=== PATIENT | female | born 1975 | race Caucasian/White ===

== ENCOUNTER 2018-09-22 05:52 | Inpatient (IN) | payer OTHER ==
--- NOTE | 2018-09-19 00:29 | PREOPHP ---
DATE OF ADMISSION: 09/22/2018 HISTORY OF PRESENT ILLNESS: This is a 43-year-old female, 3, para 3. This patient had been referred to me by her clinic due to severe periods with heaviness, very painful clots and bleeding th at lasts more than 7 days. The patient was diagnosed with large multiple fibroids. She also loses u rine with Valsalva maneuvers and due to the size of the uterus and the pressure of the uterus on her bladder, she has to wear a pad to prevent accidents. The patient had a history of an appendectomy an d a laparoscopic tubal ligation. REVIEW OF SYSTEMS: Negative for cardiovascular disease. Negative for lung disease, GI disease, endo crine disease, neurological or orthopedic disease. ALLERGIES: SHE IS NOT ALLERGIC TO ANY MEDICATIONS. SOCIAL HISTORY: She does not drink or smoke. She has no history of drugs. FAMILY HISTORY: Diabetes on her father's side. MEDICATIONS: She is not taking any medication. She had a history of a tubal ligation. The patient had a CT scan to evaluate her uterus because of t he size of her uterus and there was mild dilatation of both ureters due to the pelvic pressure of the uterus that were multiple fibroids. PHYSICAL EXAMINATION: VITAL SIGNS: The patient's blood pressure was 90/60, pulse is 80, respirations 16. She weighs 162 p ounds. The patient is 5 feet 3 inches. HEAD AND NECK: Normal. BREASTS: Soft, nontender, no masses. Breasts with fibrocystic breast. HEART: Normal sinus rhythm. BACK: Normal. ABDOMEN: The uterus is very large, palpated over the symphysis pubis, about 14-week size of a pregna ncy. PELVIC: With normal external genitalia and uterus very painful on mobilization. Adnexa were negativ e. RECTAL: With the large multiple fibroid uterus that was pressuring in the back. EXTREMITIES: Normal with normal pulses, no edema. Normal reflexes. IMAGING: The patient's CT scan showed no lymphadenopathy or ascites and only the dilatation, mild di latation of both ureters, and she also was found to have a periumbilical hernia. DIAGNOSES: 1. Large multiple fibroid uterus with bilateral ureteral external compression. 2. Intractable pelvic pain and bleeding. PLAN: She is undergoing a total abdominal hysterectomy and bilateral salpingectomy. She has been ad vised of the possible risks and possible complications of the procedure with her alternatives and opt ions. Written information was provided. She had no more questions and agreed to go ahead with the p rocedure with full understanding and no more questions. Dictated By: MATTHIEU HICKS/NTS Conf#: [id number] DID#: [id number]
[2018-09-21 18:32] VITALS: BMI 29.3
[2018-09-22] VITALS (42 sets, daily range): BP systolic 80–134; BP diastolic 53–79; PULSE 60–78; RESP 9–32; Ht 160 cm; Wt 70.4 kg
[~2018-09-22] VITALS: Ht 160 cm; Wt 70.4 kg
[~2018-09-22 05:52] MED LIST: HYDR-3498 PO; IBUP-1542 PO; NITR-58 PO; ORPH100T PO
[2018-09-22] MEDS ORDERED: CEFAZOLIN 2 GM/50 ML (PMX) 50 ML IVPB ONE (06:00)
[2018-09-22] MEDS ORDERED: PROPOFOL 200 MG INJ ONE (07:00)
[2018-09-22] MEDS ORDERED: SEVOFLURANE 15 MIN ONE (07:00)
--- NOTE | 2018-09-22 07:42 | HPN ---
Date/Time of Note Date/Time of Note DATE: 09/22/18 TIME: 07:42 Interval H&P Admission Note Pt. seen H&P reviewed: No system changes MATTHIEU RIVERA MD Sep 22, 2018 07:42
--- NOTE | 2018-09-22 07:45 | PREAC ---
Date/Time of Note Date/Time of Note DATE: 09/22/18 TIME: 07:43 Anesthesia Eval and Record Evaluation Time Pre-Procedure Interview DATE: 09/22/18 TIME: 07:43 Age 43 Sex female NPO: 8 hrs Preoperative diagnosis Uterine Fibroid Planned procedure Total abdominal Hysterectomy Past Medical History Past Medical History: None Surgery & Anesthesia Issues No known issue Meds Anticoagulation: No Beta Caterina within 24 hr: No Reason Beta Caterina not given: Pt. not on B-Caterina Discontinued Scripts Nitrofurantoin Monohyd Macrocr* (Macrobid*) 100 Mg Capsr, 100 MG PO BID for 7 Days, CAP Prov:STACI,SHANE C 02/01/16 Ibuprofen* (Ibuprofen*) 600 Mg Tablet, 600 MG PO Q6 for 7 Days, TAB Prov:STACI,SHANE C 02/01/16 Orphenadrine Citrate (Norflex) 100 Mg Tablet.sa, 100 MG PO BID for 7 Days, TAB.SA Prov:STACI,SHANE C 02/01/16 Hydrocodone Bit-Acetaminophen* ([place]*) 5-325 Mg Tab, 1 TAB PO Q6 PRN for PAIN, #20 TAB Prov:STACI,SHANE C 02/01/16 Current Medications Dextrose/Lactated Ringer's 1,000 ml @ 125 mls/hr Q8H IV ; Start 09/22/18 at 07:30 Meds reviewed: Yes Allergies Coded Allergies: No Known Allergy (Verified , 09/22/18) Allergies Reviewed: Yes Labs/Studies Labs Reviewed: Reviewed by anesthesiologist test: Negative Pre-procedure Exam Last vitals Vital Signs Date Temp Pulse Resp B/P (MAP) Pulse Ox O2 O2 Flow FiO2 Time Delivery Rate 09/22/18 98.2 63 18 80/55 (63) 99 Room Air 07:27 Airway: Adequate mouth opening, Adequate thyromental dist Mallampati: Mallampati II Teeth: Normal Lung: Normal Heart: Normal ASA Physical Status ASA physical status: 2 Emergency: None Planned Anesthetic General/MAC: ETT, LMA Neuraxial: Spinal Planned Pain Management Sub-arachniod narcotics, Parenteral pain med Pre-operative Attestations Prior to commencing anesthesia and surgery, the patient was re-evaluated, there was verification of: *The patient's identity *The results of appropriate recent lab work and preoperative vital signs *The above evaluation not changing prior to induction *Anesthetic plan, risk benefits, alternative and complications discussed with patient/family; questions answered; patient/family understands, accepts and wishes to proceed. MARCO ANTONIO DUVALL MD Sep 22, 2018 07:45
[2018-09-22] MEDS ORDERED: MIDAZOLAM 1 MG/ML 2 ML INJ ONE (07:54)
[2018-09-22] MEDS ORDERED: FENTAnyl 50 MCG/ML VIAL ONE (07:54)
[2018-09-22] MEDS ORDERED: morphine SULFATE/PF (10 MG/10 ML) INJ ONE (07:54)
--- NOTE | 2018-09-22 08:30 | SIPON ---
Date/Time of Note Date/Time of Note DATE: 09/22/18 TIME: 08:28 Operative Report Preoperative Diagnosis Intractable pelvic pain and bleeding Large giant multiple fibroid uterus Chronic anemia Bilateral ureteral pressure Postoperative Diagnosis Same Operation/Procedure Performed Total abdominal hysterectomy bilateral salpingectomy Surgeon see signature line sales assistant entertainment and mediajenifer Rivera Anesthesia: general Estimated blood loss: 50 - 100 ml's Transfusion Required none Specimen Uterus and tubes Grafts/Implants none Complications none MATTHIEU RIVERA MD Sep 22, 2018 08:30
[2018-09-22] MEDS ORDERED: THROMBIN 5000 UNIT VIAL ONE (09:48)
[2018-09-22] MEDS ORDERED: ROCURONIUM 50 MG INJ ONE (10:24)
[2018-09-22] MEDS ORDERED: LIDOCAINE 2% (SDV) 5 ML INJ ONE (10:24)
[2018-09-22] MEDS ORDERED: GLYCOPYRROLATE 0.4 MG INJ ONE (10:24)
[2018-09-22] MEDS ORDERED: NEOSTIGMINE 3 MG/3 ML SYRINGE ONE (10:24)
[2018-09-22] MEDS ORDERED: ETOMIDATE 20 MG INJ ONE (10:24)
[2018-09-22] MEDS ORDERED: ONDANSETRON 4 MG INJ ONE (10:25)
[2018-09-22] MEDS ORDERED: CEFAZOLIN 1 GM INJ ONE (10:38)
--- NOTE | 2018-09-22 10:47 | PAC ---
Date/Time of Note Date/Time of Note DATE: 09/22/18 TIME: 10:46 Post-Anesthesia Notes Post-Anesthesia Note Last documented vital signs Vital Signs Date Temp Pulse Resp B/P (MAP) Pulse Ox O2 O2 Flow FiO2 Time Delivery Rate 09/22/18 98.2 63 18 80/55 (63) 99 Room Air 07:27 Activity: WNL Respiratory function: WNL Cardiovascular function: WNL Mental status: Baseline Pain reasonably controlled: Yes Hydration appropriate: Yes Nausea/Vomiting absent: Yes Comments BP:128/76, pulse:74, spo2:100%, T:98,8 MARCO ANTONIO DUVALL MD Sep 22, 2018 10:47
[2018-09-22] MEDS ORDERED: HYDROmorphONE 1 MG/5 ML IV SYRINGE IV PRN ×2 (11:00)
[2018-09-22] MEDS ORDERED: ONDANSETRON 4 MG INJ IV PRN (11:00)
[2018-09-22] MEDS ORDERED: FENTAnyl 50 MCG/ML VIAL IV PRN (11:00)
[2018-09-22] MEDS ORDERED: METOCLOPRAMIDE 10 MG INJ IV PRN (11:00)
[2018-09-22] MEDS ORDERED: MEPERIDINE 25 MG INJ IV PRN (11:00)
[2018-09-22] MEDS ORDERED: DIPHENHYDRAMINE 50 MG INJ IV PRN (11:00)
--- NOTE | 2018-09-22 11:54 | OPR ---
DATE OF OPERATION: 09/22/2018 OPERATION PERFORMED: Total abdominal hysterectomy, bilateral salpingectomy. PREOPERATIVE DIAGNOSES: Intractable pelvic pain and bleeding. Intractable menometrorrhagia with anem ia, giant multiple fibroid uterus. Bilateral ureteral pressure. SURGEON: Matthieu Meraz MD. KNIFE SHARPENER: Dr. Mathur. ANESTHESIOLOGIST: Dr. Park with general and Duramorph. COMPLICATIONS: None. PROCEDURE: The patient was given general anesthesia and Duramorph anesthesia, placed in the supine p osition. The abdomen was prepped and draped. A Vaughn catheter was placed in the bladder. A transve rse incision was made suprapubically 2 cm up the pubic bone of about 12 cm in length. The abdominal cavity was reached. The exploration of the cavity revealed that the uterus was very large with a olga nt fibroid visioned almost up to her navel. The uterus was brought out from the incision to the surf qamar and with the bipolar instrument we started first cauterizing the round ligaments with cauterizati on and incision. Then after we did both ligaments, the bladder flap was made and the bladder was pus hed down. The ovarian ligament and tube were grabbed with the same instrument, burned and incised, t hen down the round ligament area. The skeletonization of both uterine arteries were done and both ut erine arteries were burned with the same instrument. At this level, 2 straight Cyril's were placed o n the cardinal ligaments of the uterus and the uterus was cut at the level of the cervix to be able t o put a self-retaining retractor and get the cervix out. This was done and the cardinal ligaments an d uterosacral ligaments were clamped, cut and tied with #1 Vicryl and at the posterior area the vagin al cuff was entered with scissors and the cervix was removed completely with [place] scissors. Bot h corners of the vagina were held anteriorly and posteriorly and the corners of the vagina were sutur ed with [id number]-ha-lvsta sutures with #1 Vicryl and these sutures were held. The vaginal cuff was diandra sed with 0 Vicryl continuous and interrupted sutures and the hemostasis was good. There was some ble eding underneath the bladder area from tortuous vessels that were sutured with #2-0 chromic interrupt ed sutures holding the hemostasis in good condition. There was a small tear on the meso epiploic are a of the sigmoid colon that was sutured with three stitches with 2-0 silk. There was no entering of the bowel. The cavity was visualized under water and found to be in good condition. At this time avis th tubes were removed by using the bipolar instrument on the mesosalpinx and both tubes were excised. Both ovaries were normal. We covered up both ovaries with Interceed and we left Surgiflo around th e area of the bladder for further hemostasis. The ureters were followed down with good peristalsis. The patient tolerated the procedure well and the procedure was finished by cleaning the abdomen and closing the peritoneum, after sponge counts and instrument counts were correct with 2-0 Vicryl suture , 0 PDS looped suture for the fascia, 2-0 Vicryl for the subcutaneous tissue, 3-0 Monocryl subcuticul ar to the skin, Dermabond and Steri-Strips. The patient tolerated the procedure well and left the O R awake and stable. Sponge counts, instrument counts, needle counts were correct. Intravenous antib iotics were given for prophylaxis. Dictated By: MATTHIEU HICKS/[place] Conf#: [id number] DID#: [id number]
[2018-09-22] MEDS ORDERED: DIPHENHYDRAMINE 50 MG CAP PO PRN (14:00)
[2018-09-22] MEDS ORDERED: HYDROmorphONE 1 MG/ML SYG IV PRN (14:00)
[2018-09-22] MEDS ORDERED: ONDANSETRON INJ 6 MG in DEXTROSE 5% 50 ML IVPB PRN (14:00)
[2018-09-22] MEDS ORDERED: HYDROCODONE/APAP (5/325) TAB PO PRN (14:00)
[2018-09-22] MEDS ORDERED: BISACODYL (EC) 5 MG TAB PO PRN (14:00)
[2018-09-22] MEDS: DEXTROSE 5%-LR 1,000 ML IV SCH ×3 (15:00→21:39)
[2018-09-22] MEDS: LACTATED RINGER'S 1,000 ML IV SCH ×2 (15:00→20:02)
[2018-09-22] MEDS: CEFAZOLIN 1 GM/50 ML (PMX) 50 ML IVPB SCH ×2 (15:18→19:59)
[2018-09-22] MEDS: KETOROLAC 30 MG INJ IV SCH ×2 (15:19→19:58)
[2018-09-22] MEDS: METOCLOPRAMIDE 10 MG TAB PO SCH ×2 (18:18→23:25)
[2018-09-23] VITALS (9 sets, daily range): BP systolic 79–112; BP diastolic 52–66; PULSE 67–82; RESP 18–20
[2018-09-23] MEDS: KETOROLAC 30 MG INJ IV SCH ×4 (02:00→20:03)
[2018-09-23] MEDS: SOD CHLORIDE 0.9% 1,000 ML IV SCH ×2 (03:17→10:43)
[2018-09-23] MEDS: CEFAZOLIN 1 GM/50 ML (PMX) 50 ML IVPB SCH (04:04)
[2018-09-23] MEDS: LACTATED RINGER'S 1,000 ML IV SCH (05:46)
[2018-09-23] MEDS: METOCLOPRAMIDE 10 MG TAB PO SCH ×3 (05:51→18:59)
[2018-09-23] MEDS ORDERED: BISACODYL (EC) 5 MG TAB PO ONE (12:00)
--- NOTE | 2018-09-23 12:51 | PN ---
Date/Time of Note Date/Time of Note DATE: 09/23/18 TIME: 12:49 Assessment/Plan Lines/Catheters IV Catheter Type (from Nrsg): Saline Lock Vaughn in Place (from Nrsg): Yes Subjective 24 Hr Interval Summary Day 1 post hysterectomy Afebrile feels good Anemic but without symptoms since she was used to anemia from her heavy bleeding Tolerating diet IV iron will be given Ambulation was encouraged Constitutional: no complaints Feeding: advancing diet Pain Control: mild Detailed Summary Eyes: no complaints ENT: no complaints Respiratory: no complaints Cardiovascular: no complaints Gastrointestinal: no complaints Genitourinary: no complaints Musculoskeletal: no complaints Skin: no complaints Neurologic: no complaints Endocrine: no complaints Lymphatic: no complaints Psychological: no complaints, nl mood/affect Immunologic: no complaints Exam/Review of Systems Vital Signs Vitals Vital Signs Date Temp Pulse Resp B/P (MAP) Pulse Ox O2 O2 Flow FiO2 Time Delivery Rate 09/23/18 99.1 80 18 99/66 (77) 98 Room Air 08:00 09/22/18 2.0 20:58 Intake and Output 09/22/18 09/22/18 09/23/18 1515:00 23:00 07:00 IntakeIntake Total 1400 ml 800 ml 2250 ml OutputOutput Total 300 ml 500 ml 750 ml BalanceBalance 1100 ml 300 ml 1500 ml Exam Constitutional: alert, oriented, well developed Psych: no complaints, nl mood/affect Head: normocephalic, atraumatic Eyes: nl conjunctiva, EOMI, nl lids, nl sclera ENMT: nl external ears & nose, nl lips & teeth, nl nasal mucosa & septum, mucosa pink and moist Neck: supple, non-tender Respiratory: clear to auscultation, normal air movement Cardiovascular: regular rate and rhythm, nl pulses Gastrointestinal: soft, nl liver, spleen, non-tender Musculoskeletal: nl extremities to inspection, nl gait and stance Extremities: normal pulses Neurological: 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
[2018-09-23] MEDS ORDERED: SOD FERRIC GLUC COMPLX 125 MG in SOD CHLORIDE 0.9% 100 ML IVPB ONE (13:00)
[2018-09-23] MEDS: SOD FERRIC GLUC COMPLX 125 MG in SOD CHLORIDE 0.9% 100 ML IVPB SCH (13:03)
[2018-09-23] MEDS ORDERED: HYDROmorphONE 0.5 MG/0.5 ML SYG IV PRN (18:00)
[2018-09-23] MEDS ORDERED: DIPHENOXYLATE/ATROPINE TAB PO PRN (19:30)
[2018-09-23] MEDS: ZOLPIDEM 5 MG TAB PO PRN (22:09)
[2018-09-24] MEDS: KETOROLAC 30 MG INJ IV SCH ×2 (01:53→08:09)
[2018-09-24 04:00] VITALS: BP 100/60; PULSE 76; RESP 20
[2018-09-24] MEDS: METOCLOPRAMIDE 10 MG TAB PO SCH ×5 (05:46→23:26)
[2018-09-24 08:30] VITALS: BP 115/65; PULSE 80; RESP 18
--- NOTE | 2018-09-24 11:48 | QN ---
Documentation Comment POD #2 s/p BLU Feeling good. Excellent pain management with Toradol. Ambulating easily. +BM several times. T=99 BP 115/65 Incision is C/D/I. Perineum is dry. Ext NT, no edema. P: Change to p.o. pain meds to prepare for d/c. Plan d/c tomorrow. JAZMÍN CHOW MD Sep 24, 2018 11:47
[2018-09-24 12:15] VITALS: BP 112/65; PULSE 77; RESP 18
[2018-09-24] MEDS: IBUPROFEN 800 MG TAB PO SCH ×4 (12:30→23:26)
[2018-09-24] MEDS: SOD FERRIC GLUC COMPLX 125 MG in SOD CHLORIDE 0.9% 100 ML IVPB SCH (13:11)
[2018-09-24] MEDS ORDERED: KETOROLAC 30 MG INJ IV ONE (14:00)
[2018-09-24 16:55] VITALS: BP 132/77; PULSE 67; RESP 18
[2018-09-24] MEDS: HYDROCODONE/APAP (5/325) TAB PO PRN (18:26)
[2018-09-24 20:00] VITALS: BP 106/60; PULSE 70; RESP 20
[2018-09-24] MEDS: ZOLPIDEM 5 MG TAB PO PRN (21:08)
[2018-09-25] MEDS: HYDROCODONE/APAP (5/325) TAB PO PRN (05:51)
[2018-09-25] MEDS: METOCLOPRAMIDE 10 MG TAB PO SCH ×3 (05:51→17:42)
[2018-09-25 06:13] VITALS: BP 101/70; PULSE 79; RESP 20
[2018-09-25 08:36] VITALS: BP 118/75; PULSE 64; RESP 18
--- NOTE | 2018-09-25 10:12 | QN ---
Documentation Comment POD #3 Pt was doing well yesterday but today reports more pain on the left side of her incision and says it has become difficult to walk. Denies fevers but does say she has a few chills. Spouse has told the RN that she has a very low pain threshhold. T=98.4 BP 118/75 Abdomen nondistended. Incision is clean, dry and intact and there is no erythema or swelling notable although the left side of the incision is distinctly tender to palpation. Lochia wnl. Ext NT, no edema. P: Motrin 800 is already q 6 hours but will change the Strang from q 6 hours to q 3 hours. CBC and CMP and will see how the pt responds to these changes. Will notify Dr Meraz of the pt's status. JAZMÍN CHOW MD Sep 25, 2018 10:12
[2018-09-25] MEDS ORDERED: HYDROCODONE/APAP (5/325) TAB PO PRN ×2 (11:00)
[2018-09-25] MEDS: IBUPROFEN 800 MG TAB PO SCH ×2 (12:08→16:44)
[2018-09-25 14:37] VITALS: BP 124/68; RESP 64
--- NOTE | 2018-09-25 18:48 | PD.PPDC ---
SENIOR RECRUITER Discharge Instruction Condition [id number] Patient Condition: [id number] Good Diet [id number] Diet: Utqrm0d Resume Regular Diet Activity/Restrictions Nmyri7Kr Activity: [id number] Normal Activity May Shower Ehkwm1Td Restrictions: Kwsce1c No Exercising No Lifting No Driving No Sexual Activity Nothing in the Vagina No [place] No Tampons, douche Wound/Drain Care Instructions Pxrii4Lp Wound/Drain Care Xrszq1c Remove Steri Strips in 1 week Instructions: Wash with soap and water Keep clean and dry Follow-up Follow-up with Physician: 1, Week/Weeks Return to clinic for Kipqb4Po SPORTS BOOK WRITER Instructions: Itnui5l Fever greater than 101 Chills Worsening abdominal pain Excessive Vaginal Bleeding More than 2 pads per hour Unable to tolerate diet Exbdg0Lm Surgical Instructions: Ruzff2b Incisional Drainage Incisional Redness MATTHIEU RIVERA MD Sep 25, 2018 18:48
--- NOTE | 2018-09-25 18:53 | DS ---
Date/Time of Note Date/Time of Note DATE: 09/25/18 TIME: 18:49 Discharge Summary Admission/Discharge Info Admit Date/Time Sep 22, 2018 at 05:52 Discharge Date/Time September 25, 2018 Discharge Diagnosis Giant fibroid uterus intractable pelvic pain and bleeding anemia Patient Condition: Good Procedures Total abdominal hysterectomy bilateral salpingectomy Hx of Present Illness 43 years old female multigravida with a history of a long-standing multiple fibroid with intractable pelvic pain and bleeding. Medical treatment unsuccessful. Hysterectomy was advised Hospital Course The patient did very well after the hysterectomy she had normal vital signs she was tolerating diet and she was voiding well She was ambulatory with bowel movement at the time of discharge. Incision was healing well. Pain was controlled with pain medication by mouth CBC was with anemia but she had a history of anemia and she was yesterday so she has no symptoms. She was advised for high protein diet and vitamins and iron.; Home with instructions of what to do not to do at home and if she had any problems to see me at any time or see me in a week Home Meds Discontinued Scripts Nitrofurantoin Monohyd Macrocr* (Macrobid*) 100 Mg Capsr, 100 MG PO BID for 7 Days, CAP Prov:STACI,SHANE C 02/01/16 Ibuprofen* (Ibuprofen*) 600 Mg Tablet, 600 MG PO Q6 for 7 Days, TAB Prov:STACI,SHANE C 02/01/16 Orphenadrine Citrate (Norflex) 100 Mg Tablet.sa, 100 MG PO BID for 7 Days, TAB.SA Prov:STACISHANE C 02/01/16 Hydrocodone Bit-Acetaminophen* ([place]*) 5-325 Mg Tab, 1 TAB PO Q6 PRN for PAIN, #20 TAB Prov:STACISHANE C 02/01/16 Follow-up Plan 1 week Primary Care Provider Not On Staff Doctor Time spent on discharge: < 30 minutes Pending Labs Laboratory Tests Test 09/25/18 10:55 White Blood Count 4.5 10^3/ul (4.8-10.8) Red Blood Count 2.80 10^6/ul (4.20-5.40) Hemoglobin 7.6 g/dl (12.0-16.0) Hematocrit 24.9 % (37.0-47.0) Mean Corpuscular Volume 88.9 fl (82.0-101.0) Mean Corpuscular Hemoglobin 27.1 pg (29.0-33.0) Mean Corpuscular Hemoglobin Concent 30.5 g/dl (32.0-37.0) Red Cell Distribution Width 15.9 % (11.5-14.5) Platelet Count 208 10^3/UL (140-415) Mean Platelet Volume 10.2 fl (7.4-10.4) Immature Granulocytes % 0.200 % (0.001-0.429) Neutrophils % 60.7 % (39.0-77.0) Lymphocytes % 25.9 % (15.0-51.0) Monocytes % 9.5 % (0.0-11.0) Eosinophils % 3.3 % (0.0-7.0) Basophils % 0.4 % (0.0-2.0) Nucleated Red Blood Cells % 0.0 /100WBC (0.0-0.0) Immature Granulocytes # 0.010 10^3/ul (0.0-0.031) Neutrophils # 2.7 10^3/ul (1.6-7.5) Lymphocytes # 1.2 10^3/ul (0.8-2.9) Monocytes # 0.4 10^3/ul (0.3-0.9) Eosinophils # 0.2 10^3/ul (0.0-0.5) Basophils # 0.0 10^3/ul (0.0-0.1) Nucleated Red Blood Cells # 0.0 10^3/ul (0.0-0.0) Sodium Level 141 mmol/L (135-144) Potassium Level 3.6 mmol/L (3.5-5.1) Chloride Level 109 mmol/L (97-110) Carbon Dioxide Level 26 mmol/L (21-31) Anion Gap 6 (5-13) Blood Urea Nitrogen 5 mg/dl (7-20) Creatinine 0.63 mg/dl (0.44-1.00) Est Glomerular Filtrat Rate mL/min > 60 mL/min (>60) Glucose Level 104 mg/dl (70-220) Calcium Level 8.2 mg/dl (8.4-10.2) Total Bilirubin 0.0 mg/dl (0.2-1.3) Direct Bilirubin 0.00 mg/dl (0.00-0.20) Indirect Bilirubin 0.0 mg/dl (0-1.1) Aspartate Amino Transf (AST/SGOT) 26 IU/L (15-46) Alanine Aminotransferase (ALT/SGPT) 17 IU/L (13-69) Alkaline Phosphatase 61 IU/L (42-121) Total Protein 5.8 g/dl (6.1-8.1) Albumin 2.9 g/dl (3.3-4.9) Globulin 2.90 g/dl (1.3-3.2) Albumin/Globulin Ratio 1.00 MATTHIEU RIVERA MD Sep 25, 2018 18:53
== END 2018-09-25 19:55 | disposition home or self-care (01) | DRG 743 ==
LOC: REC 05:52 → EDSTATUS 09:00 → TEL 14:41 → PP1 09-23 00:02
PROVIDERS: ADMIT Obstetrics & Gynecology; ATTEND Obstetrics & Gynecology
PROC: 0UT90ZZ Resection of Uterus, Open Approach (ICD-10-PCS; principal; 2018-09-22 07:30)
PROC: 0UT70ZZ Resection of Bilateral Fallopian Tubes, Open Approach (ICD-10-PCS; 2018-09-22 07:30)
DX: D25.9 Leiomyoma of uterus, unspecified (principal); Z98.51 Tubal ligation status; N92.1 Excessive and frequent menstruation with irregular cycle; D50.0 Iron deficiency anemia secondary to blood loss (chronic)
CPT/HCPCS: 80053; 85025; 86850; 86900; 86901; 87086; 88305; J0690; J1170; J1885; J2250; J2274; J2405; J2710; J2916; J3010; J7030; J7120; J7121